=== PATIENT | female | born 1960 | race Caucasian/White ===

== ENCOUNTER → 2019-10-16 | Outpatient (CLI) | payer OTHER | LOC: RAD 10:59 | PROVIDERS: ATTEND Radiology Radiation Oncology | DX: C49.22 Malignant neoplasm of connective and soft tissue of left lower limb, including hip (principal) | CPT/HCPCS: 78816; A9552 ==

== ENCOUNTER → 2020-02-19 | Outpatient (CLI) | payer OTHER ==
--- NOTE | 2020-02-20 09:36 | RADIOLOGY REPORT (SQ) ---
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 RADIONUCLIDE AND DOSE: 11.35 mCi F18 FDG The route of agent administration: Intravenous FASTING BLOOD SUGAR: 90 mg/dl CONTRAST TYPE AND DOSE: No CT contrast given. TECHNIQUE: Blood glucose level was verified. Above dose of FDG was injected intravenously. 2-D seg mented attenuation correction images were obtained through the entire body. Noncontrast CT images we re obtained for attenuation correction and fusion with emission images. CT images were performed wit hout oral or intravenous contrast and are not sensitive for parenchymal lesions. A series of overlap ping emission PET images were obtained. Images reviewed and manipulated at independent work station by the radiologist. Images stored on PACS. LIMITATIONS: None. FINDINGS: HEAD AND NECK: No areas of abnormal metabolic activity in the soft tissues of the head and neck. CHEST: No areas of abnormal metabolic activity in the chest. ABDOMEN AND PELVIS: The liver demonstrates homogeneous FDG uptake with an average SUV of 1.8 (compare d to 1.9 on the prior PET). There is expected physiologic activity throughout the gastrointestinal a nd genitourinary tracts. The subcutaneous stranding in the suprapubic and left inguinal region is un changed and it demonstrates faint FDG uptake with maximum SUVs of 1.8. LOWER EXTREMITIES: The intensity of FDG uptake within the subcutaneous nodules in the medial aspect o f the left thigh has decreased from a maximum SUV of 3.8 on the prior PET to 2.3 on the current PET. The inflammation/subcutaneous stranding in the anterior aspect of the left calf persist, however the focal abnormal uptake in the distal left calf that had a maximum SUV of 6.7 on the prior PET has res olved. BONES: No areas of abnormal metabolic activity in the skeleton. ADDITIONAL CT FINDINGS: No acute abnormality on the noncontrast CT. OTHER: No other finding. IMPRESSION: The intensity of FDG uptake within the subcutaneous nodules in the medial aspect of the left thigh has decreased from a maximum SUV of 3.8 on the prior PET to 2.3 on the current PET. The i nflammation/subcutaneous stranding in the anterior aspect of the left calf persist, however the focal abnormal uptake in the distal left calf that had a maximum SUV of 6.7 on the prior PET has resolved. TECHNICAL DOCUMENTATION: JOB ID: [id number] 2010 [employer]- All Rights Reserved Reading location - IP/workstation name: [email or web address]
== END ==
LOC: RAD 07:48
PROVIDERS: ATTEND Internal Medicine Hematology & Oncology
DX: C76.3 Malignant neoplasm of pelvis (principal)
CPT/HCPCS: 78815; 78816; A9552